=== PATIENT | male | born 1980 ===

== ENCOUNTER 2017-09-16 11:51 | Emergency (ER) | payer OTHER ==
[2017-09-16 12:00] VITALS: TEMP 97.3
[2017-09-16] MEDS ORDERED: Tetracaine 0.5% Ophth 2 ML BOTTLE OU ONE (12:25)
[2017-09-16] MEDS ORDERED: Fluorescein 1 mg Ophthalmic Strip ONE (12:38)
[2017-09-16] MEDS ORDERED: Tetracaine 0.5% Ophth (OR ONLY) ONE (12:38)
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
[2017-09-16 13:13] VITALS: BP 164/105; PULSE 70; RESP 20; O2SAT 98
== END 2017-09-16 13:35 | disposition home or self-care (01) ==
LOC: C.ER 11:51
DX: H57.8 Other specified disorders of eye and adnexa (principal); I10 Essential (primary) hypertension